=== PATIENT | male | born 1990 | race Caucasian/White ===

== ENCOUNTER 2019-08-28 11:40 | Emergency (ER) | payer MEDICARE, OTHER ==
[~2019-08-28] VITALS: Ht 162.6 cm; Wt 83.9 kg
[2019-08-28] MEDS ORDERED: ROSUVASTATIN CA20 MG PO (11:47)
[2019-08-28] MEDS ORDERED: TRAZ50 PO (11:47)
[2019-08-28] MEDS ORDERED: Pepcid40 MG PO (14:12)
[2019-08-28] MEDS ORDERED: METPRE4DP PO (14:12)
== END 2019-08-28 14:21 | disposition home or self-care (01) ==
LOC: ER 11:40
DX: R22.0 Localized swelling, mass and lump, head (principal); E78.5 Hyperlipidemia, unspecified; Z79.899 Other long term (current) drug therapy
CPT/HCPCS: 96374; 96375; 99283-25; A9270-GY; J1100; J1200

== ENCOUNTER → 2024-12-18 | Outpatient (CLI) | payer MEDICARE, OTHER ==
[~2024-12-18] MED LIST: METPRE4DP PO; Pepcid40 MG PO; ROSUVASTATIN CA20 MG PO; TRAZ50 PO
[2024-12-18 19:11] LABS: Hematocrit 51.3 % (37.0-53.0); Hemoglobin 17.3 g/dL (13.5-17.5); Mean Corpuscular HGB Conc 33.7 g/dL (31.5-36.5); Mean Corpuscular Volume 85 fL (80-100); NRBC ABSOLUTE 0.00 K/mm3 (0.00-0.02); NRBC Auto 0.0 /100 WBC (0.0-0.2); Platelet Count 270 K/mm3 (150-400); RDW Coefficient Variation 12.4 % (11.7-14.2); RDW Standard Deviation 37.6 fL (35.1-46.3)
[2024-12-18 19:42] LABS: Alanine Aminotransfer (ALT/SGP 39 U/L (12-78); Albumin, Blood 4.6 g/dL (3.4-5.0); Albumin/Globulin Ratio 1.4 (0.8-1.8); Anion Gap 6 mmol/L (3-11); Aspartate Aminotrans (AST/SGOT 20 U/L (12-37); Bilirubin, Total 0.6 mg/dL (0.1-1.0); CHOL/HDL RATIO 5.9; CO2, Blood 30 mmol/L (21-32); Calcium, Blood 9.6 mg/dL (8.5-10.1); Chloride, Blood 104 mmol/L (98-108); Cholesterol 242 mg/dL (50-200); Creatinine, Blood 0.93 mg/dL (0.60-1.20); Globulin, Blood 3.3 g/dL (2.2-4.0); Glucose, Blood 105 mg/dL (70-99); HDL Cholesterol 41 mg/dL (>39); LDL/HDL RATIO 4.1; Low Density Lipoprotein Chol 168 mg/dL (0-110); Potassium, Blood 3.8 mmol/L (3.5-5.5); Sodium, Blood 136 mmol/L (136-145); Total Protein, Blood 7.9 g/dL (6.4-8.2); Triglycerides 163 mg/dL (30-140); Very Low Density Lipoprot Chol 32 mg/dL (6-28)
[2024-12-18 19:49] LABS: Blood Urea Nitrogen 17 mg/dL (8-24); Thyroid Stimulating Hormone 0.322 uIU/mL (0.360-4.800)
== END | disposition home or self-care (01) ==
LOC: LAB 17:09 → LAB SHORT 17:09
PROVIDERS: Student in an Organized Health Care Education/Training Program
DX: Z13.1 Encounter for screening for diabetes mellitus (principal); E78.5 Hyperlipidemia, unspecified; F79 Unspecified intellectual disabilities; F32.9 Major depressive disorder, single episode, unspecified
CPT/HCPCS: 80053; 80061; 83036; 84443; 85027